=== PATIENT | male | born 1945 | race Caucasian/White ===

== ENCOUNTER 2019-12-02 07:42 | Emergency (ER) | payer OTHER, BC ==
[~2019-12-02] VITALS: Ht 172.7 cm; Wt 99.8 kg
[2019-12-02 07:52] VITALS: Ht 172.7 cm; Wt 99.8 kg
[2019-12-02 08:14] LABS: BASOPHIL % 0.1 % (0-2); PLATELET COUNT 232 x10^3mcL (130-400); RED CELL DISTRIBUTION WIDTH 13.3 % (11.5-14.5)
[2019-12-02 08:25] LABS: CALCIUM 9.7 mg/dL (8.5-10.1); CARBON DIOXIDE 29.9 mmol/L (21-32); CHLORIDE SERUM 105 mmol/L (98-107); CREATININE SERUM 1.2 mg/dL (0.7-1.3); GLUCOSE SERUM 178 mg/dL (74-106); POTASSIUM SERUM 5.3 mmol/L (3.5-5.1); SODIUM SERUM 141 mmol/L (136-145)
[2019-12-02 08:30] LABS: ALBUMIN 3.9 g/dL (3.4-5.0); ALKALINE PHOSPHATASE 52 U/L (46-116); ALT/SGPT 31 U/L (16-63); AST/SGOT 19 U/L (15-37); TOTAL PROTEIN, SERUM 7.8 g/dL (6.4-8.2)
[2019-12-02 09:45] VITALS: BP 147/76
== END 2019-12-02 09:45 | disposition home or self-care (01) ==
LOC: ED 07:42
PROVIDERS: Emergency Medicine
DX: N13.2 Hydronephrosis with renal and ureteral calculous obstruction (principal); I10 Essential (primary) hypertension
CPT/HCPCS: J1885; J2405; J7030